=== PATIENT | male | born 1960 | race Caucasian/White ===

== ENCOUNTER 2018-11-11 08:10 | Day surgery (SDC) | payer OTHER ==
[2018-11-10 10:18] LABS: HEMATOCRIT 45.4 % (42.0-54.0); HEMOGLOBIN 15.8 g/dL (13.5-17.5); MCH 32.8 pg (26.0-34.0); MCHC 34.8 g/dL (31.0-37.0); MCV 94.4 fL (80.0-100.0); MEAN PLATELET VOLUME 9.5 fL (7.4-10.4); RBC 4.81 10x6/uL (4.20-6.10); RDW 13.4 % (11.5-14.5); WBC 5.6 10x3/uL (4.8-10.8)
[2018-11-10 10:22] LABS: CALC OSMOLALITY 253 mosm/kg (275-300); CALCIUM 9.5 mg/dL (8.5-10.1); CHLORIDE - SERUM 92 mmol/L (98-107); CREATININE - SERUM 0.9 mg/dL (0.6-1.3); GLUCOSE 100 mg/dL (74-106); POTASSIUM - SERUM 3.7 mmol/L (3.5-5.1); SODIUM 127 mmol/L (136-145); UREA NITROGEN 9 mg/dL (7-18); eGFR NON AFRICAN AMERICAN > 90 mL/min (90-120)
[~2018-11-11] VITALS: Ht 188 cm; Wt 117.9 kg
[~2018-11-11 08:10] MED LIST: HCTZ25 MG PO; LOTREL 10-40 M1 EACH PO; METOPROLOL TART50 MG PO; NAPROSYN500 MG PO; VOLTAREN75 MG PO; ZOCOR20 MG PO
[2018-11-11 09:02] VITALS: BP 116/74; Ht 188 cm; Wt 117.9 kg
[2018-11-11] MEDS ORDERED: PERCOCET 5-3251 TAB PO (13:13)
[2018-11-11] MEDS ORDERED: DURICEF500 MG PO (13:14)
[2018-11-11] MEDS ORDERED: ZOFRAN ODT4 MG/UDTAB PO (13:14)
--- NOTE | 2018-11-11 15:22 | OP ---
PATIENT NAME: KRISTIAN PRICE MEDICAL RECORD: [id number] :56 LOCATION:[facility] ADMISSION DATE: SURGEON: MARCIO GOULD DO DATE OF OPERATION: 11/11/2018 PROCEDURE PERFORMED: Right thumb CMC arthroplasty. PREOPERATIVE DIAGNOSIS: End-stage right thumb CMC osteoarthritis. POSTOPERATIVE DIAGNOSIS: End-stage right thumb CMC osteoarthritis. INDICATIONS: Mr. Price is a 57-year-old male who has had lots of pain with gripping things and with trying to pinch noticed a loss of function with that and had pain and swelling. He tried an injection, which did not work as well as bracing and he is tired of dealing with the pain and wanted something done. He was consented for the procedure and was warned of the risk of damage to the superficial radial nerve in the area as well as blood loss, continued pain and deformity of the thumb, loss of fixation and need for further surgery, and infection. He was okay with those risks and signed the consent. SURGEON: Marcio Gould DO DESCRIPTION OF PROCEDURE: The patient received a block by anesthesia in the preoperative area, taken to the operative suite, laid in the supine position, the right upper extremity was prepped and draped in sterile fashion. A timeout was performed and everyone was in agreement with the correct side, site, patient and procedure. The right upper extremity was then marked out and exsanguinated with Esmarch and then tourniquet was inflated to 250 mmHg, was up for 31 minutes. The incision then began over the CMC joint on the radial side. Careful dissection was made down to the CMC joint. The capsule was taken off of the first metacarpal as well as the trapezium and then a small incision was made over the second metacarpal. Dissection was made down to the ulnar side of it. Once dissection was made, the pin was driven from the thumb through the first metacarpal under fluoroscopy having a nice trajectory and then the TightRope was brought through there with a button on the end. This was then tied down and seen to be in good position on x-ray. The trapezium was then excised and the button was tightened down further more tightly and put more ulnar on the first metacarpal. The x-ray was taken and this was seen to line up well, the first metacarpal with the second and the arc of the metacarpal bases. Then, pressure was put on the thumb to ensure that it did not sublux and it did not as it was suspended with adequate range of motion and tensioned. The suture was then tied more on the button over the second metacarpal and this was cut at that time. This was then tucked down and tourniquet was let down. Any bleeding was coagulated with a bipolar at that time and the capsule was closed over the first metacarpal. The space was left with 2-0 Vicryl in a [id number] fashion and then the skin with 2-0 inverted interrupted fashion there and a second metacarpal and then 2-0 nylon over the thumb CMC joint in a horizontal mattress fashion, 4-0 nylon over the second metacarpal in a horizontal mattress fashion. The arm was then cleaned and Adaptic, 4 x 4s, and cast padding then placed over the hand of the thumb and a thumb spica splint was put on the thumb and secured in place with a 2-inch Hipolito wrap. The patient was then awakened and taken to recovery in stable condition. Blood loss was approximately 50 mL. COMPLICATIONS: None. OPERATIVE REPORT [id number] KRISTIAN PRICE TRANSINT:[id number] Voice Confirmation ID: [id number] DOCUMENT ID: [id number] MARCIO GOULD DO at 1522 CC: [id number] DICTATION DATE: 11/11/18 [address] OPERATOR: 11/11/18 1348 [facility] 11/11/18 [id number] [place] [address]
== END 2018-11-11 15:00 | disposition home or self-care (01) ==
LOC: D.OPS 08:10 → D.PAN 10:30 → D.OPS 15:00
PROVIDERS: Anesthesiology; ATTEND Orthopaedic Surgery
DX: M18.11 Unilateral primary osteoarthritis of first carpometacarpal joint, right hand (principal); Z01.812 Encounter for preprocedural laboratory examination